=== PATIENT | male | born 1995 ===

== ENCOUNTER 2022-10-04 02:04 | Emergency (ER) | payer MEDICAID ==
[~2022-10-04] VITALS: Ht 182.9 cm; Wt 87.0 kg
[2022-10-04 02:22] VITALS: TEMP 99.8
[2022-10-04] MEDS ORDERED: ACETAMINOPHEN 500 MG TABLET PO ONE (03:15)
[2022-10-04 03:26] VITALS: BP 123/52; PULSE 70; RESP 16
== END 2022-10-04 03:27 | disposition home or self-care (01) ==
LOC: EMS 02:08
DX: S01.111A Laceration without foreign body of right eyelid and periocular area, initial encounter (principal); W26.8XXA Contact with other sharp object(s), not elsewhere classified, initial encounter; Y93.89 Activity, other specified; Y92.89 Other specified places as the place of occurrence of the external cause; Y99.8 Other external cause status
CPT/HCPCS: 12011; 99282; Z7502; Z7610